=== PATIENT | female | born 1995 | race Caucasian/White ===

== ENCOUNTER → 2016-10-03 | Outpatient (CLI) | payer BC ==
[~2016-10-03] MED LIST: BCPILLS PO
--- NOTE | 2016-10-03 09:00 | DIAGNOSTIC IMAGING REPORT ---
ULTRASOUND RIGHT UPPER QUADRANT ABDOMEN CLINICAL HISTORY: Nausea and vomiting. . COMPARISON STUDY: Abdominal CT dated 10/23/2014. TECHNIQUE: Real-time, grayscale, and color flow sonography of the right upper quadrant of the abdomen was performed. Images are reviewed in the transverse and longitudinal planes. FINDINGS: Liver: The liver is normal in size and echotexture. There is no intrahepatic biliary ductal dilatation. The main portal vein is patent. Gallbladder: The gallbladder is normal in appearance. No gallstones are identified. There is no gallbladder wall thickening or pericholecystic fluid. A sonographic Osborne's sign is reportedly absent. The common bile duct measures up to 0.4 cm in diameter. Pancreas: Visualized portions of the pancreatic head and body are normal in appearance. Right kidney: Survey images of the right kidney demonstrate normal size and echotexture. There is no hydronephrosis. Ascites: None. IMPRESSION: Unremarkable sonographic evaluation of the right upper quadrant. No gallstones are identified. Electronically signed by: Yair Andrade M.D. 10/03/2016 8:59 AM Dictated Date/Time: 10/03/2016 8:58 AM
== END | disposition home or self-care (01) ==
LOC: C.ULTRBC 08:25
PROVIDERS: ATTEND Nurse Practitioner Family
DX: R11.2 Nausea with vomiting, unspecified (principal); Z33.1 Pregnant state, incidental

== ENCOUNTER → 2016-10-29 | Outpatient (CLI) | payer BC ==
--- NOTE | 2016-10-31 09:57 | EEG Procedure Note ---
EEG Procedure Note Date of Service Oct 29, 2016. Start / End Times Start Time: 2:29 PM End Time: 2:50 p.m. Referring Physician SHERLY Tapia History This is a 20-year-old female with episodes of altered consciousness and concern for seizures. EEG for Further Evaluation of Possible Seizure Etiology. Home Medication List Scheduled Control Pills ( Control Pills), 1 TAB PO DAILY Description This is a 21 electrode EEG with a single channel dedicated to limited EKG. The electrodes were placed in accordance with the International 10-20 system. At the start of the recording the patient was in an awake state. Background was well organized and composed of symmetric mixed alpha and beta frequencies. There was a symmetric well-formed moderate amplitude 9 Hz posterior dominant rhythm that was reactive to eye opening and closure. Hyperventilation was not done. Intermittent photic stimulation at various frequencies produced no abnormalities. Sleep was indicated by vertex waves and symmetric sleep spindles. Interpretation This is a normal awake and asleep routine EEG. There was no electrographic seizures or epileptiform discharges. Clinical Correlation A normal EEG does not rule out epilepsy if there is a strong clinical suspicion.
== END | disposition home or self-care (01) ==
LOC: C.NEUR 14:14
PROVIDERS: ATTEND Nurse Practitioner Family
DX: R40.4 Transient alteration of awareness (principal)

== ENCOUNTER → 2017-01-25 | Outpatient (CLI) | payer BC ==
--- NOTE | 2017-01-28 08:05 | DIAGNOSTIC IMAGING REPORT ---
BRAIN WITHOUT CONTRAST CLINICAL HISTORY: 21 years-old Female presenting with dizzy spells, near syncope, spacing out, lightheadedness, no history of trauma. TECHNIQUE: Multisequence, multiplanar MR imaging of the brain was performed without the use of intravenous contrast. IV contrast: None. COMPARISON: CT head from 10/03/2015. FINDINGS: Normal midline sagittal structures. Stephens-white matter differentiation preserved. No restricted diffusion to suggest acute ischemia. No midline shift or mass effect. No hemorrhage or extra-axial fluid collection. Bone marrow signal intensity within the calvarium normal. Normal inner ear structures. Persistence of synchondrosis between the anterior body and dens, likely normal for age. Paranasal sinuses and mastoid air cells grossly clear. Orbits normal. Upper cervical spine normal. IMPRESSION: No acute intracranial abnormality. Electronically signed by: Uriel Restrepo M.D. 01/28/2017 8:04 AM Dictated Date/Time: 01/28/2017 7:52 AM
== END | disposition home or self-care (01) ==
LOC: C.MRIBC 14:53
PROVIDERS: ATTEND Nurse Practitioner Family
DX: H53.10 Unspecified subjective visual disturbances (principal); R42 Dizziness and giddiness; R11.0 Nausea; R55 Syncope and collapse

== ENCOUNTER 2020-03-28 05:11 | Inpatient (IN) ==
--- NOTE | 2020-03-25 19:00 | History and Physical Report ---
DATE OF ADMISSION: 03/28/2020 PREOPERATIVE DIAGNOSES: 1. Intrauterine at 39 weeks. 2. History of previous section, desires repeat. HISTORY OF PRESENT ILLNESS: Melinda is a 24-year-old white female 3, para 1-0-1-1, who presents for labor and delivery this morning for a scheduled repeat section. Her first was complicated by a to deliver a 5 pound 3/4 ounce baby. This was done at [place]. It was IUGR and a failed induction. She desires repeat section and declines trial of labor. She also declines sterilization procedure at the time of her section. She notes good movement, occasional contractions, no leakage of fluid, no vaginal bleeding. The has been essentially uncomplicated. She was a transfer of care at 19 weeks. She has obesity and had a growth ultrasound at 32 weeks showing a baby in the 33rd percentile. ALLERGIES: No known drug allergies. MEDICATIONS: vitamins, iron, and Zofran as needed. PAST MEDICAL HISTORY: Significant for a cyst of the breast and an ovarian cyst and obesity. She denies heart disease, heart murmur, diabetes, kidney or liver problems. PAST SURGICAL HISTORY: Includes a , left breast biopsy, surgical procedure of the mouth and wisdom teeth removal. SOCIAL HISTORY: The patient denies tobacco and alcohol and drug use. She lives with her family and significant other. PAST OBSTETRIC AND GYNECOLOGIC HISTORY: First in 12/2016 as noted above. Second in 07/2018; this was a spontaneous miscarriage. She has regular menstrual cycles every 28-30 days and she denies history of sexually transmitted illnesses. She has no history of abnormal Pap smears. FAMILY HISTORY: Father of the baby's mother has diabetes mellitus and his father has Crohn's disease, but no other significant family history. PHYSICAL EXAMINATION: GENERAL: This is a well-developed, well-nourished, obese white female, gravid, in no acute distress. VITAL SIGNS: Blood pressure 126/80, weight 269.6 pounds. NECK: Supple without thyromegaly or lymphadenopathy. CHEST: Clear to auscultation bilaterally. CARDIOVASCULAR: Regular rate and rhythm without murmurs, gallops or rubs. ABDOMEN: Gravid, soft and nontender. EXTREMITIES: Show trace edema but are otherwise negative. PELVIC: Deferred. LABORATORY DATA: Blood type O positive, antibody negative, hepatitis B negative, hepatitis B surface antigen negative, HIV negative, RPR negative, rubella nonimmune. Pap smear in 01/2018 is normal. Panorama was low risk. Chlamydia and gonorrhea cultures were negative. A 28-week glucose was 183 with a normal 2-hour glucose. GBS was negative. ASSESSMENT AND PLAN: Melinda is a 24-year-old white female 3, para 1-0-1-1 who presents at 39 and 0/7 weeks for elective repeat section. She declines trial of labor and sterilization. The risks of the procedure were discussed with the patient including the risks of anesthesia, bleeding requiring transfusion, infection, poor wound healing, damage to surrounding structures including bowel, bladder, vessels, nerves and ureters with need for further surgery, hospitalization or intervention. Discussed the risk of any surgery including heart attack, blood clot, stroke or . Consent was reviewed and signed. Surgery is planned for Saturday, 03/28.
[2020-03-28] MEDS ORDERED: LACTATED RINGER'S 1,000 ML IV SCH ×3 (05:15→09:51)
[2020-03-28 05:46] LABS: Basophils # (auto) 0.01 K/uL (0-0.2); Basophils % (auto) 0.1 %; Eosinophils # (auto) 0.13 K/uL (0-0.5); Eosinophils % (auto) 1.8 %; Hematocrit (blood only) 34.5 % (37-47); Hemoglobin 11.2 g/dL (12.0-16.0); Immature Granulocytes # (auto) 0.03 K/uL (0.00-0.02); Immature Granulocytes % (auto) 0.4 %; Lymphocytes # (auto) 2.27 K/uL (1.2-3.4); Mean Corpuscular Hemoglobin 26.7 pg (25-34); Mean Corpuscular Volume 82.3 fL (80-100); Mean Platelet Volume 10.7 fL (7.4-10.4); Monocytes % (auto) 7.1 %; Neutrophils # (auto) 4.15 K/uL (1.4-6.5); Neutrophils % (auto) 58.6 %; Platelet Count 274 K/uL (130-400); RDW Coefficient of Variation 15.7 % (11.5-14.5); RDW Standard Deviation 46.2 fL (36.4-46.3); Red Blood Count 4.19 M/uL (4.2-5.4); White Blood Count 7.09 K/uL (4.8-10.8)
[2020-03-28 05:52] LABS: Mean Corpuscular Hgb Conc 32.5 g/dL (32-36)
[2020-03-28] MEDS ORDERED: CEFAZOLIN 3,000 MG in DEXTROSE 5% 50 ML IV SCH (06:00)
[2020-03-28] MEDS ORDERED: CITRIC ACID/SODIUM CITRATE 15 ML UDC PO SCH (06:00)
[2020-03-28 06:32] LABS: Appearance Urine Cloudy (Clear); Bacteria Urine Automated 2+ (Negative); Bilirubin Urine Negative (Negative); Blood Urine Negative (Negative); Color Urine Yellow; Epithelial Cell Urine Auto >30 /lpf (0-5); Glucose Urine UA Negative (Negative); Ketones Urine 3+ (Negative); Leukocyte Esterase Urine 2+ (Negative); Nitrite Urine Negative (Negative); Protein Urine Trace (Negative); Specific Gravity Urine 1.016 (1.000-1.030); Urobilinogen Urine Negative (Negative); pH Urine 5.5 (4.5-7.5)
[2020-03-28 06:49] LABS: Renal Epithelial Cells Urine 0-5 /lpf (0-5)
--- NOTE | 2020-03-28 07:10 | Anesthesiology Consultation ---
Date of Service March 28, 2020 Assessment & Plan (1) Encounter for pre-operative examination: Chart Review Chart Review: Acceptable Risk for Surgery and Patient NOT seen in Pre Admission Testing Consults Requested none ASA ASA3 Proposed Anesthesia Anesthesia Type: Spinal Risk / Benefits Reviewed With: PT / POA / Parent / Guardian, Accepts Plan and Informed Consent Obtained History Surgery Operation Date: 03/28/20 07:30 Proposed Procedures p Section - Alida Crawford MD, FACOG Height/Weight Height: 5 ft 3 in Weight: 122.016 kg Allergies Allergy/AdvReac Type Severity Reaction Status Date / Time No Known Allergies Allergy Verified 03/25/20 10:21 Medications Home Medications Medication Instructions Recorded Confirmed Last Taken PNV 153-FA 400 mcg-om3 35 mg-dha 1 tab PO HS 11/10/19 03/28/20 03/27/20 21:00 25 mg-epa 5 mg-fish oil chew tablet ferrous sulfate 325 mg PO HS 03/22/20 03/28/20 03/27/20 09:00 ondansetron 4 mg PO Q6H PRN #12 tab 03/23/20 03/25/20 Unknown NPO Date Last Intake of Fluids: 03/27/20 Time Last Intake of Fluids: 19:30 Date Last Intake of Solids: 03/27/20 Time Last Intake of Solids: 19:30 Past Medical History Medical History (Updated 03/28/20 @ 07:19 by Arianna Mcgowan MD) Cyst of breast Hypoglycemia Nausea and vomiting after administration of anesthetic agent Obesity Ovarian cyst Exercise / Class Metabolic Activity II 4-5 Yardwork/Stairs/Walk up hill Past Family History Family History Other No family history of adverse response to anesthesia Past Surgical History Surgical History H/O section History of left breast biopsy benign History of surgical procedure on mouth removed piece of tooth stuck in gum [place] teeth removed Past Anesthesia History No Hx of Anesthesia Complications History of PONV No Hx of PONV Social History Smoking Status: Never smoker Do You Dip or Chew Tobacco: No Hx Alcohol Use: No Alcohol type: other alcohol intake frequency: other Alcohol Intake Frequency Comment: prior to drank 1 strawberry daquiri maybe once a month Hx Substance Use: No substance use type: does not use Review of Systems Negative for chest pain or shortness of breath. Patient denies active symptoms of GERD. Patient denies history of abnormal bleeding or bleeding disorder. Patient denies active use of anticoagulants other than low dose aspirin. Patient denies numbness, tingling or weakness in lower extremities. Physical Exam Vital Signs Last Vital Signs Temp 36.5 C 03/28/20 07:01 Pulse 73 03/28/20 07:03 Resp 18 03/28/20 07:01 BP 92/54 L 03/28/20 07:03 Constitutional + morbidly obese ENMT Mouth: no TMJ abnormality and oral opening not small Thyromental Distance: > or= 3.5 Finger Breadths Mallampati Class: II Mouth / Teeth: 1. chipped Neck normal visual inspection; neck extension not limited Respiratory normal respiratory effort Auscultation: lungs clear to auscultation bilaterally Cardiovascular Rate/Rhythm: regular rate and regular rhythm Heart Sounds: no murmur Neurologic moves all extremities Motor/Sensory: no sensory deficit Psychiatric Orientation: alert and oriented x 3 Testing Laboratory Results 03/28/20 05:34 Urine Color Yellow 03/28/20 05:16 Urine Appearance Cloudy (Clear) A 03/28/20 05:16 Urine pH 5.5 (4.5-7.5) 03/28/20 05:16 Ur Specific Thor 1.016 (1.000-1.030) 03/28/20 05:16 Urine Protein Trace (Negative) H 03/28/20 05:16 Urine Glucose (UA) Negative (Negative) 03/28/20 05:16 Urine Ketones 3+ (Negative) H 03/28/20 05:16 Urine Nitrite Negative (Negative) 03/28/20 05:16 Ur Leukocyte Esterase 2+ (Negative) H 03/28/20 05:16 Urine WBC (Auto) 10-30 /hpf (0-5) H 03/28/20 05:16 Urine RBC (Auto) 5-10 /hpf (0-4) H 03/28/20 05:16 U Hyaline Cast (Auto) 10-30 /lpf (0-5) H 03/28/20 05:16 U Epithel Cells (Auto) >30 /lpf (0-5) H 09/14/20 05:16 Urine Bacteria (Auto) 2+ (Negative) H 03/28/20 05:16 Blood Type O Positive 03/28/20 05:34 Antibody Screen NEGATIVE 03/28/20 05:34
[2020-03-28] MEDS ORDERED: fentaNYL citrate 100 MCG/2 ML VIAL ONE (07:21)
[2020-03-28] MEDS ORDERED: ePHEDrine sulfate 50 MG/ML AMP ONE (07:21)
[2020-03-28] MEDS ORDERED: MoRPHine SULFATE PF 1 MG/ML 10 ML AMP/VIAL ONE (07:22)
[2020-03-28] MEDS ORDERED: OXYTOCIN 10 UNITS/ML VIAL ONE (07:48)
[2020-03-28] MEDS ORDERED: ONDANSETRON INJ 2 MG/ML 2 ML VIAL ONE (07:48)
[2020-03-28] MEDS ORDERED: ONDANSETRON INJ 2 MG/ML 2 ML VIAL IV PRN (08:10)
[2020-03-28] MEDS ORDERED: MoRPHine SULFATE PF 1 MG/ML 10 ML AMP/VIAL INT SPINAL ONE (08:10)
[2020-03-28] MEDS ORDERED: NALOXONE HCL 0.4 MG/1 ML VIAL/CARP IV PRN (08:10)
[2020-03-28] MEDS ORDERED: NALOXONE HCL 1 MG in SODIUM CHLORIDE 0.9% 1000ML 1,000 ML IV PRN (08:10)
[2020-03-28] MEDS ORDERED: PROMETHAZINE HCL 25 MG in SODIUM CHLORIDE 0.9% 50 ML IV PRN (08:10)
[2020-03-28] MEDS ORDERED: DiphenhydrAMINE HCL 50 MG/ML VIAL IV PRN (08:10)
[2020-03-28] MEDS ORDERED: ePHEDrine sulfate 50 MG/ML AMP IV PRN (08:10)
[2020-03-28] MEDS ORDERED: NALOXONE HCL 0.08 MG in SYRINGE 1.8 ML IV PRN (08:10)
[2020-03-28] MEDS ORDERED: LACTATED RINGER'S 500 ML IV PRN (08:10)
[2020-03-28] MEDS ORDERED: ACETAMINOPHEN 1000 MG/100 ML IV IV PRN (08:10)
[2020-03-28] MEDS ORDERED: HYDROmorphone INJ 0.5 MG/0.5 ML SYR IV PRN (08:10)
[2020-03-28] MEDS ORDERED: KETOROLAC 30 MG/ML VIAL IV PRN (08:10)
[2020-03-28] MEDS ORDERED: SODIUM CHLORIDE 0.9% 1000ML 1,000 ML IV SCH (08:15)
[2020-03-28] MEDS ORDERED: DC INTRASPINAL MORPHINE SCH (08:15)
[2020-03-28] MEDS ORDERED: NO NARCOTICS OR SEDATIVES SCH (08:15)
[2020-03-28] MEDS ORDERED: KETOROLAC 30 MG/ML VIAL ONE (08:20)
[2020-03-28] MEDS ORDERED: PHENYLEPHRINE 100MCG/ML 5ML SYR ONE (08:21)
--- NOTE | 2020-03-28 09:43 | Operative Report ---
PG Post Operative Report Pre & Post Diagnosis Operation Date: 03/28/20 07:30 Pre-Op Diagnosis: at 39 weeks. Previous section. Desire repeat section. Post-Op Diagnosis: Same as above. Delivery of live female child at 0800. I identified the patient and participated in the time-out.: Yes Procedure Operation Date: 03/28/20 07:30 Actual Procedures p REpeat lower transverse Section(Bilateral) - Alida Crawford MD, FACOG Surgeon Alida Crawford MD, FACOG First Officer And [employer] Instructor DR. Dulce Alcocer Estimated Blood Loss 500 Findings Consistent with Post-Op Diagnosis Viable female infant in cephalic presentation, Apgars Fluids 800cc Specimens none Drains brumfield Anesthesia Type Spinal Complications none Disposition Accompanied Patient To Recovery: Yes Disposition: L&D Indications with at 39 weeks who presents for elective repeat c/s. De clines kolby and tubal Description of Procedure The patient was taken to the operating room where she was identified verbally and by bracelet. She was seated on the operating table where a spinal anesthetic was placed by anesthesia. she was then placed in the supine position with a leftward tilt. A Brumfield catheter was placed sterilely. the patient was prepped and draped in a normal standard fashion. the anesthetic was tested and found to be adequate. A time-out was held, identifying correct patient, procedure, positioning and preoperative antibiotics. There were no concerns. A Pfannenstiel skin incision was made with a knife and taken down to the underlying layer of fascia with the knife and Bovie electocautery. Bleeding was attended to with Bovie cautery. The fascia was incised in the midline with the knife and taken out laterally with scissors. the superior edge of the fascial incision was grasped, elevated and the underlying layer of rectus muscle was taken off bluntly and with scissors. In a similar fashion, the inferior edge of the fascial incision was grasped, elevated and the underlying layer of rectus muscle was taken off bluntly and with scissors. The muscles were bluntly in the midline. The peritoneum was entered bluntly. The incision was then stretched. The bladder blade was placed. The vesicouterine peritoneum was identified, entered with scissors and taken out laterally with scissors. The bladder flap was created digitally A hysterotomy incision was scored with a knife and the incision was stretched cephalad and caudad with the electrical logging operator's fingers. The operators hand was placed into the incision and the head was delivered atraumtically. No nuchal cord. The nose and mouth were bulb suctioned. the rest of the infant was then delivered without difficulty. The nose and mouth were again bulb suctioned. the cored was clamped and cut and the infant was then handed off to the awaiting salesman/owner for drying and attention. Cord blood and segment were obtained. The placenta was manually extracted. the uterus was exteriorized and cleared of all clot and debris with moistened laparotomy sponges. The hysterotomy incision was repaired in two layers, the first in a running locked layer, the second in an imbricating layer. Hemostasis was noted to be good. Posterior cul-de-sac was irrigated and cleared of all clot and debris. The hysterotomy incision was again inspected and found to be hemostatic. the uterus was reinteriorized. Hysterotomy incision was again inspected and found to be hemostatic. Rectus muscles were reapproximated with several interrupted stitches of 0 Vicryl. The fascia was then reapproximated with 0 Vicryl starting at the edges and meeting in the midline. The subcuticular tissues were copiously irrigated and bleeding was attended to with cautery. The subcuticular tissue was reapproximated with 2-0 Plain gut. The skin was then closed with 4-0 Vicryl in a subcuticular fashion. All sponge, lap and needle counts were correct x 2. the patient was taken to the recovery room in stable condition. I attest to the content of the Intraoperative Record and any orders documented therein. Any exceptions are noted below. OB Procedure charges OB Charges 52114 C/S
[2020-03-28] MEDS ORDERED: MAGNESIUM HYDROXIDE SUSP 30 ML UDC PO PRN (09:51)
[2020-03-28] MEDS ORDERED: SENNA 8.6 MG TAB PO PRN (09:51)
[2020-03-28] MEDS ORDERED: HYDROCORTISONE ACETATE 25 MG SUPP PR PRN (09:51)
[2020-03-28] MEDS ORDERED: SUPERCREAM 0.870% 15 GM JAR EXT PRN (09:51)
[2020-03-28] MEDS ORDERED: DIPHTHERIA/TETANUS/PERTUSSIS 0.5 ML SYR/VIAL IM ONE (09:51)
[2020-03-28] MEDS ORDERED: BENZOCAINE 20% AER SPR 82.5 GM CAN EXT PRN (09:51)
[2020-03-28] MEDS: OXYTOCIN 20 UNITS in LACTATED RINGER'S 1,000 ML IV SCH ×3 (10:08→22:09)
--- NOTE | 2020-03-28 11:36 | Anesthesiology Progress Note ---
Date of Service March 28, 2020 Anesthesia Post Procedure Vital Signs Vital Signs: Temp Pulse Resp BP Pulse Ox 03/28/20 10:33 77 16 93/54 L 98 03/28/20 10:32 69 98 03/28/20 10:27 70 97 03/28/20 10:23 72 98/57 L 03/28/20 10:22 78 99 03/28/20 10:17 75 98 03/28/20 10:13 86 102/58 L 03/28/20 10:12 73 98 03/28/20 10:07 69 99 03/28/20 10:03 36.5 C 73 16 93/52 L 97 03/28/20 10:02 74 98 03/28/20 09:57 67 98 03/28/20 09:53 70 99/48 L 03/28/20 09:52 74 98 03/28/20 09:47 73 98 03/28/20 09:43 72 111/53 L 03/28/20 09:42 76 100 03/28/20 09:37 71 99 03/28/20 09:33 36.5 C 67 18 87/42 L 100 03/28/20 09:32 69 100 03/28/20 09:27 71 100 03/28/20 09:23 62 16 93/50 L 100 03/28/20 09:22 68 100 03/28/20 09:17 69 100 03/28/20 09:14 67 92/50 L 03/28/20 09:13 65 18 92/50 L 100 03/28/20 09:12 77 100 03/28/20 09:07 70 100 03/28/20 09:03 67 20 93/50 L 100 03/28/20 09:02 72 100 03/28/20 08:57 71 100 03/28/20 08:53 74 18 94/50 L 100 03/28/20 08:52 75 100 03/28/20 08:47 76 91 03/28/20 08:43 92 H 18 102/53 L 100 03/28/20 08:42 91 H 100 03/28/20 08:37 78 100 03/28/20 08:33 36.7 C 84 18 109/54 L 100 03/28/20 08:32 74 100 03/28/20 07:19 80 100/58 L 03/28/20 07:03 73 92/54 L 03/28/20 07:01 36.5 C 73 18 92/54 L 03/28/20 05:54 75 112/70 03/28/20 05:27 36.5 C 18 Transfer of Care Handoff Completed per policy Notes Mental Status: alert / awake / arousable and participated in evaluation Nausea / Vomiting: adequately controlled Pain: adequately controlled Airway Patency, RR, SpO2: stable & adequate BP & HR: stable & adequate Hydration State: stable & adequate Neuraxial Anesthesia: was administered and sensory block is resolving Anesthetic Complications: no major complications apparent and Pt Satisfied with anesthetic care
[2020-03-28] MEDS: SIMETHICONE 80 MG CHEW PO SCH ×3 (12:49→21:33)
[2020-03-28] MEDS ORDERED: LACTATED RINGER'S 1,000 ML IV ONE (13:08)
[2020-03-28] MEDS: DOCUSATE SODIUM 100 MG CAP PO SCH (21:33)
[2020-03-29] MEDS ORDERED: ONDANSETRON INJ 2 MG/ML 2 ML VIAL IV PRN (02:11)
[2020-03-29] MEDS ORDERED: DiphenhydrAMINE HCL 50 MG/ML VIAL IV PRN (02:11)
[2020-03-29] MEDS ORDERED: PROMETHAZINE HCL 25 MG in SODIUM CHLORIDE 0.9% 50 ML IV PRN (02:11)
[2020-03-29] MEDS ORDERED: KETOROLAC 30 MG/ML VIAL IV PRN (02:11)
[2020-03-29] MEDS ORDERED: MEPERIDINE HCL 50 MG/ML CARP IV PRN (02:11)
[2020-03-29 05:31] LABS: Basophils # (auto) 0.01 K/uL (0-0.2); Basophils % (auto) 0.2 %; Eosinophils # (auto) 0.12 K/uL (0-0.5); Hematocrit (blood only) 28.3 % (37-47); Hemoglobin 9.1 g/dL (12.0-16.0); Immature Granulocytes # (auto) 0.02 K/uL (0.00-0.02); Immature Granulocytes % (auto) 0.3 %; Lymphocytes # (auto) 1.43 K/uL (1.2-3.4); Lymphocytes % (auto) 23.6 %; Mean Corpuscular Hemoglobin 26.2 pg (25-34); Mean Corpuscular Hgb Conc 32.2 g/dL (32-36); Mean Corpuscular Volume 81.6 fL (80-100); Mean Platelet Volume 10.2 fL (7.4-10.4); Monocytes # (auto) 0.53 K/uL (0.11-0.59); Monocytes % (auto) 8.8 %; Neutrophils # (auto) 3.94 K/uL (1.4-6.5); Neutrophils % (auto) 65.1 %; Platelet Count 215 K/uL (130-400); RDW Coefficient of Variation 15.4 % (11.5-14.5); RDW Standard Deviation 45.1 fL (36.4-46.3); Red Blood Count 3.47 M/uL (4.2-5.4); White Blood Count 6.05 K/uL (4.8-10.8)
[2020-03-29] MEDS: OXYCODONE/ACETAMINOPHEN 5mg/325mg TAB PO PRN ×3 (06:06→19:47)
--- NOTE | 2020-03-29 06:41 | Medical Student Progress Note ---
Date of Service March 29, 2020 Assessment & Plan Admission and Anticipated Discharge Date Admission Date: March 28, 2020 Patient is a 24 year old female doing well 1 day post at 39.1 weeks feeling well with pain well controlled and incision site dressing is dry, and clean. Blood type O Positive Rubella IgG negative on 09/18/19 GBS- Continue ambulating, progress diet as tolerated, administer MMR vaccine due to negative IgG titers. Continue to monitor incision site and lochia. Monitor lightheadedness upon standing. Order belly band per patient's request. Subjective Post-c/s progress note Melinda Martinez is a 24 y/o female who is POD #1 following delivery at 39.1 weeks to a 3.25lbs girl. She reports feeling well overall this morning. No abdominal cramping & 5/10 pain well managed on analgesics. Voiding well. On clear liquids, tolerating them well and able to ambulate some. Is passing gas and no bowel movement. Has not noticed any bleeding or lochia. Currently bottle feeding. Review of Systems Denies fever, chills. Denies shortness of breath, difficulty breathing, chest pain, palpitations, chest pressure. Denies dysuria. Denies headache. Denies leg pain or swelling. Some lightheadedness when first standing up but no dizziness. Physical Exam Constitutional: well developed, well nourished and + obese; no acute distress Respiratory: normal respiratory effort, lungs clear to auscultation Cardiovascular: RRR, no murmur, no edema Heart Sounds: normal S1 and normal S2 Extremities: no calf tenderness no redness or swelling of calves Gastrointestinal (Abdomen): Inspection/Auscultation: normal bowel sounds surgical incision dressing is clean, dry. No warmth, erythema, discharge, around dressing. Genitourinary: Uterus is firm, nontender. 4cm below umbilicus per Dr. Hola Sotomayor Results & Data ([facility]) Vital Signs (Past 12 Hours) Vital Signs Temp Pulse Pulse Resp BP Pulse Ox 03/29/20 05:30 36.6 C 75 18 92/61 L 97 03/29/20 02:50 36.6 C 83 20 100/64 95 03/29/20 02:00 18 94 03/29/20 01:30 16 94 03/29/20 00:00 18 96 03/28/20 23:45 36.4 C L 84 18 104/71 96 03/28/20 20:25 16 94 03/28/20 19:25 16 98 03/28/20 19:15 36.6 C 84 16 106/73 98 Hgb: 9.44 down from 11.2 pre-c/s Hct: 28.3L down from 34.5 pre-c/s Tmax: 37C
--- NOTE | 2020-03-29 06:42 | Obstetrical Progress Note ---
Date of Service <Hola Sotomayor MD - Last Filed: 03/29/20 06:50> March 29, 2020 Assessment & Plan <Hola Sotomayor MD - Last Filed: 03/29/20 06:50> (1) : Melinda Martinez is a 24yo who presented to L&D for elective repeat section at 39wga, POD#1. -doing well, ambulating, passing gas -BP soft at 92/61; c/w LR @ 125mL/hr IV q8h -pain controlled -c/w ibuprofen 700mg PO q4h prn -c/w oxycodone/acetaminophen 1-2 tab PO q4h prn -c/w zofran 4mg IV q4h prn -c/w bowel regimen -O+, Rh neg, rubella nonimmune, GBS neg -routine care -f/u in [address] Crawford Weeks of gestation: 38 weeks Qualified Code(s): Z3A.38 - 38 weeks gestation of Subjective <Hola Sotomayor MD - Last Filed: 03/29/20 06:50> Ambulation: limited ambulation Voiding: no voiding problems Passing Gas:: Yes Diet Tolerance:: clear liquids Lochia:: Small Feeding Type:: bottle feeding Current Pain Level(1-10): 5 Feeling well, some lightheadedness when getting out of bed to use the restroom but this resolves quickly upon standing slowly Constitutional: no fever and no chills Respiratory: no cough and no dyspnea Cardiovascular: no chest pain, no palpitations and no edema Gastrointestinal: no nausea and no vomiting Genitourinary (female): no dysuria Physical Exam <Hola Sotomayor MD - Last Filed: 03/29/20 06:50> Constitutional no acute distress Respiratory normal respiratory effort, lungs clear to auscultation Cardiovascular RRR, no murmur, no edema Gastrointestinal (Abdomen) Inspection/Auscultation: normal bowel sounds Percussion/Palpation: abdomen soft Incision C/D/I Genitourinary Uterine fundus firm and palpable 4cm below umbilicus Results & Data ([facility]) <Hola Sotomayor MD - Last Filed: 03/29/20 06:50> Vital Signs (Past 12 Hours) Vital Signs Temp Pulse Pulse Resp BP Pulse Ox 03/29/20 05:30 36.6 C 75 18 92/61 L 97 03/29/20 02:50 36.6 C 83 20 100/64 95 03/29/20 02:00 18 94 03/29/20 01:30 16 94 03/29/20 00:00 18 96 03/28/20 23:45 36.4 C L 84 18 104/71 96 03/28/20 20:25 16 94 03/28/20 19:25 16 98 03/28/20 19:15 36.6 C 84 16 106/73 98 <Alida Crawford MD, FACOG - Last Filed: 03/29/20 08:27> Co-Signing Physician Notes Resident Physician Supervision Note: I interviewed and examined the patient. Discussed with Dr. Sotomayor and agree with findings and plan as documented in the note. Any exceptions or clarifications are listed here: Doing well PPD 1. Encourage ambulation, voids without brumfield, adat, po pain meds. BP on the low side , but is tolerating this well. hgb 11.2-->9.1. Documented By: Alida Crawford MD, FACOG Resident Activity Tracking <Hola Sotomayor MD - Last Filed: 03/29/20 06:50> Resident Involvement: Resident Care Provided Care Provided: OB Delivery
--- NOTE | 2020-03-29 07:41 | Anesthesiology Progress Note ---
Date of Service March 29, 2020 Anesthesia Post Procedure Vital Signs Vital Signs: Temp Pulse Pulse Pulse Resp BP BP 03/29/20 05:30 36.6 C 75 18 92/61 L 03/29/20 02:50 36.6 C 83 20 100/64 03/29/20 02:00 18 03/29/20 01:30 16 03/29/20 00:00 18 03/28/20 23:45 36.4 C L 84 18 104/71 03/28/20 20:25 16 03/28/20 19:25 16 03/28/20 19:15 36.6 C 84 16 106/73 03/28/20 18:25 18 03/28/20 17:25 16 03/28/20 16:25 18 03/28/20 15:25 36.6 C 80 16 95/60 L 03/28/20 14:26 16 03/28/20 13:40 16 03/28/20 12:45 73 16 94/60 L 03/28/20 12:40 16 03/28/20 12:20 36.4 C L 68 16 88/60 L 03/28/20 11:40 16 03/28/20 10:40 36.6 C 69 16 99/63 L 03/28/20 10:33 77 16 93/54 L 03/28/20 10:32 69 03/28/20 10:27 70 03/28/20 10:23 72 98/57 L 03/28/20 10:22 78 03/28/20 10:17 75 03/28/20 10:13 86 102/58 L 03/28/20 10:12 73 03/28/20 10:07 69 03/28/20 10:03 36.5 C 73 16 93/52 L 03/28/20 10:02 74 03/28/20 09:57 67 03/28/20 09:53 70 99/48 L 03/28/20 09:52 74 03/28/20 09:47 73 03/28/20 09:43 72 111/53 L 03/28/20 09:42 76 03/28/20 09:37 71 03/28/20 09:33 36.5 C 67 18 87/42 L 03/28/20 09:32 69 03/28/20 09:27 71 03/28/20 09:23 62 16 93/50 L 03/28/20 09:22 68 03/28/20 09:17 69 03/28/20 09:14 67 92/50 L 03/28/20 09:13 65 18 92/50 L 03/28/20 09:12 77 03/28/20 09:07 70 03/28/20 09:03 67 20 93/50 L 03/28/20 09:02 72 03/28/20 08:57 71 03/28/20 08:53 74 18 94/50 L 03/28/20 08:52 75 03/28/20 08:47 76 03/28/20 08:43 92 H 18 102/53 L 03/28/20 08:42 91 H 03/28/20 08:37 78 03/28/20 08:33 36.7 C 84 18 109/54 L 03/28/20 08:32 74 Pulse Ox 03/29/20 05:30 97 03/29/20 02:50 95 03/29/20 02:00 94 03/29/20 01:30 94 03/29/20 00:00 96 03/28/20 23:45 96 03/28/20 20:25 94 03/28/20 19:25 98 03/28/20 19:15 98 03/28/20 18:25 99 03/28/20 17:25 96 03/28/20 16:25 97 03/28/20 15:25 99 03/28/20 14:26 100 03/28/20 13:40 100 03/28/20 12:45 100 03/28/20 12:40 100 03/28/20 12:20 98 03/28/20 11:40 98 03/28/20 10:40 99 03/28/20 10:33 98 03/28/20 10:32 98 03/28/20 10:27 97 03/28/20 10:23 03/28/20 10:22 99 03/28/20 10:17 98 03/28/20 10:13 03/28/20 10:12 98 03/28/20 10:07 99 03/28/20 10:03 97 03/28/20 10:02 98 03/28/20 09:57 98 03/28/20 09:53 03/28/20 09:52 98 03/28/20 09:47 98 03/28/20 09:43 03/28/20 09:42 100 03/28/20 09:37 99 03/28/20 09:33 100 03/28/20 09:32 100 03/28/20 09:27 100 03/28/20 09:23 100 03/28/20 09:22 100 03/28/20 09:17 100 03/28/20 09:14 03/28/20 09:13 100 03/28/20 09:12 100 03/28/20 09:07 100 03/28/20 09:03 100 03/28/20 09:02 100 03/28/20 08:57 100 03/28/20 08:53 100 03/28/20 08:52 100 03/28/20 08:47 91 03/28/20 08:43 03/28/20 08:42 100 03/28/20 08:37 100 03/28/20 08:33 100 03/28/20 08:32 100 Transfer of Care Handoff Completed per policy Notes Mental Status: alert / awake / arousable and participated in evaluation Patient Amnestic to Procedure: Yes Nausea / Vomiting: adequately controlled Pain: adequately controlled Airway Patency, RR, SpO2: stable & adequate BP & HR: stable & adequate Hydration State: stable & adequate Anesthetic Complications: no major complications apparent and Pt Satisfied with anesthetic care
[2020-03-29] MEDS: IBUPROFEN 600 MG TAB PO PRN ×3 (08:25→19:47)
[2020-03-29] MEDS: SIMETHICONE 80 MG CHEW PO SCH ×4 (08:25→20:50)
[2020-03-29] MEDS: PRENATAL VITAMIN 1 TAB PO SCH (08:25)
[2020-03-29] MEDS: FERROUS SULFATE 325 MG TAB PO SCH (08:25)
[2020-03-29] MEDS: DOCUSATE SODIUM 100 MG CAP PO SCH ×2 (08:25→20:50)
[2020-03-29] MEDS ORDERED: bisacodyL 5 MG TABEC PO SCH (20:00)
[2020-03-30 06:15] LABS: Hematocrit (blood only) 29.5 % (37-47); Hemoglobin 9.4 g/dL (12.0-16.0)
[2020-03-30] MEDS: IBUPROFEN 600 MG TAB PO PRN ×2 (06:45→13:01)
[2020-03-30] MEDS: OXYCODONE/ACETAMINOPHEN 5mg/325mg TAB PO PRN ×2 (06:45→13:01)
--- NOTE | 2020-03-30 08:05 | Obstetrical Progress Note ---
Date of Service March 30, 2020 Assessment & Plan (1) Encounter for care and examination after delivery: satisfactory /post-op recovery wishes to go home if baby discharged scripts sent to pharmacy listd Day #:: 2 Subjective Ambulation: ambulating normally Passing Gas:: Yes Diet Tolerance:: regular diet Lochia:: Small Feeding Type:: breast feeding pain well controlled with oral pain meds Review of Systems All systems reviewed & are unremarkable except as noted in HPI & below Physical Exam Constitutional WD/WN, vitals as above Gastrointestinal (Abdomen) Inspection/Auscultation: + abdominal surgical incision (intact and dry- no erythema or induration) Psychiatric A+Ox3, euthymic affect Results & Data ([facility]) Vital Signs (Past 12 Hours) Vital Signs Temp Pulse Resp BP Pulse Ox 03/29/20 22:32 98.1 F 72 20 107/68 97
[2020-03-30] MEDS: SIMETHICONE 80 MG CHEW PO SCH ×2 (09:13→13:00)
[2020-03-30] MEDS: FERROUS SULFATE 325 MG TAB PO SCH (09:13)
[2020-03-30] MEDS: DOCUSATE SODIUM 100 MG CAP PO SCH (09:13)
[2020-03-30] MEDS: PRENATAL VITAMIN 1 TAB PO SCH (09:13)
[2020-03-30] MEDS ORDERED: bisacodyL 10 MG SUPP PR PRN (09:30)
--- NOTE | 2020-04-01 14:45 | Discharge Summary (DS) ---
ADMIT DIAGNOSES: 1. Intrauterine at 39+ weeks. 2. History of previous section, desires repeat. DISCHARGE DIAGNOSES: Same. PROCEDURES: Repeat lower transverse section. HISTORY OF PRESENT ILLNESS: Brigitte is a 24-year-old white female 3, para 1-0-1-1 who presents to labor and delivery for scheduled repeat section. Her first was complicated by to deliver a 5 pound 3/4 ounce baby. This was done at [place] that was for IUGR and failed induction. She desires repeat and declines trial of labor. Additionally, she also declines sterilization procedure. For the rest of patient's detailed history and physical, please see her history and physical. ASSESSMENT: This is a 24-year-old white female 3, para 1-0-1-1 at 39 weeks who desires repeat section. HOSPITAL COURSE: The patient was admitted and underwent a repeat lower transverse section without difficulty. Estimated blood loss was 500 mL. Findings at the time of surgery revealed normal uterus, tubes, and ovaries bilaterally and she delivered a viable baby in cephalic presentation. Her postoperative course was uncomplicated. She tolerated a regular diet, ambulated, voided after the removal of her Cohen catheter and tolerated a regular diet. Her discharge H&H was 9.4 and 29.5. She was discharged home on postoperative day #2 feeling well to return in 6 weeks for postoperative check.
== END 2020-03-30 13:40 | disposition home or self-care (01) | DRG 788 ==
LOC: 4S1 05:11 → EDSTATUS 07:30 → 4S2 10:40

== ENCOUNTER 2022-09-17 05:32 | Inpatient (IN) ==
--- NOTE | 2022-08-24 08:23 | PAT Medication Instructions ---
Medication Instructions Date of Service August 24, 2022 Home Medications Medication Instructions Recorded norethindrone 1.5 mg-ethinyl 1 tab PO DAILY #28 tabs 09/05/21 estradiol 30 mcg(21)/iron 75 mg(7) tablet ( FE ()) norethindrone 1.5 mg-ethinyl estradiol 30 mcg(21)/iron 75 mg(7) tablet ( FE ()) 1 tab PO DAILY 1 cap PO HS Continue as directed norethindrone 1.5 mg-ethinyl estradiol 30 mcg(21)/iron 75 mg(7) tablet ( FE ()) 1 tab PO DAILY Take evening before surgery 1 cap PO HS Other Notes If you have any questions please call us at [phone] or [phone] or [phone] or [phone]
--- NOTE | 2022-08-28 15:41 | Anesthesiology Consultation ---
Date of Service August 28, 2022 Assessment & Plan (1) Encounter for pre-operative examination: - COVID screening: Per assessment on 08/28: No known COVID-19 positive contacts or current COVID-19 related symptoms. Travel screen negative. Patient vaccinated. At surgeon discretion if preop Covid testing being done. - S/P Repeat (03/28/20): SAB at L3 (x1 attempt) at [facility]. No issues noted per post-op anesthesia progress note. Chart Review Chart Review: Acceptable Risk for Surgery and Patient seen in Pre Admission Testing Teaching & Discussion Pre-Anesthesia Teaching/Discussion Notes: Instructed NPO after midnight before surgery,except medications with 15 cc of water. Medication instructions provided according to the PAT guidelines. History Surgery Operation Date: 09/17/22 07:30 Proposed Procedures p Repeat Section - Roderick Emanuel MD Height/Weight Height: 5 ft 3 in Weight: 117.9 kg Allergies Allergy/AdvReac Type Severity Reaction Status Date / Time No Known Allergies Allergy Verified 08/23/22 15:21 Medications Home Medications Medication Instructions Recorded Confirmed Last Taken 1 cap PO HS 08/23/22 08/23/22 Unknown Past Medical History Medical History Migraines Exercise / Class Metabolic Activity III < 4 Walking/Shop/Light housework (one FS (no CP, + SOB)) Past Family History Family History Other No family history of adverse response to anesthesia Past Surgical History Surgical History H/O section 2019 Repeat (03/28/20): SAB at L3 (x1 attempt) at [facility]. No issues noted per post-op anesthesia progress note. History of left breast biopsy benign History of surgical procedure on mouth removed piece of tooth stuck in gum Nausea and vomiting after administration of anesthetic agent [place] teeth removed Past Anesthesia History No Hx of Anesthesia Complications (except PONV) and No Family Hx of Anesthesia Complications History of PONV History of PONV and Hx of Motion Sickness Social History Smoking Status: Never smoker Do You Dip or Chew Tobacco: No Hx Alcohol Use: No Hx Substance Use: No substance use type: does not use Review of Systems Stable [place]. Patient denies chest pain, shortness of breath, fever, chills, cough, wheezing, palpitations. Physical Exam Vital Signs VITALS BP 99/67 P 89 TEMP 98.2 SP02 97%RA RESP 16 PHYSICAL Full cervical extension range of motion. Full TMJ range of motion. TMD 3 finger breaths Mallampati Score 1 Dentition: intact Lungs: clear throughout to auscultation Cardiac: regular rate and rhythm, no murmurs noted Spine: normal Extremities: no edema Lab Results Anesthesia Preop Results Results Anesthesia Widget: WBC 9.62 K/ul (4.8-10.8) 08/28/22 Hgb 8.8 g/dl (12.0-16.0) L 08/28/22 Hct 27.8 % (37.0-47.0) L 08/28/22 Plt 271 K/uL (130-400) 08/28/22 Na 135 mmol/L (136-145) L 08/28/22 K 4.1 mmol/L (3.5-5.1) 08/28/22 Cl 105 mmol/L (98-107) 08/28/22 CO2 24 mmol/L (21-32) 08/28/22 BUN 6 mg/dl (6-23) 08/28/22 Creat 0.44 mg/dl (0.6-1.2) L 08/28/22 Glucose Level 81 mg/dl (70-99(Fasting)) 08/28/22 PT 10.6 Seconds (9.0-12.0) 08/28/22 PTT 25.4 Seconds (21.0-31.0) 08/28/22 INR 1.0 (0.9-1.1) 08/28/22 Blood Type O Positive 08/28/22 Antibody Screen NEGATIVE 08/28/22 COVID-19 Risk Screen Screening Information COVID-19 Screen Date: 08/28/22 Exposure 21 Days Family/Household +COVID Last 21 Days: No Exposure 10 Days Any COVID Exposure Last 10 Days: No Symptoms Last 10 Days Experienced COVID Sx Last 10 Days: No + COVID 0-90 Days COVID + in Last 0-90 Days: No
--- NOTE | 2022-09-11 16:52 | History and Physical Report ---
CHIEF COMPLAINT: Intrauterine at 39 weeks' gestation. Two previous sections. HISTORY OF PRESENT ILLNESS: The patient is a 26-year-old 4, para 2. She has had 1 spontaneo us AB. General health is good. was dated with a first trimester ultrasound done at about 8 weeks 2 days, gave her due date of 09/23/2022. First was done in 2016. She had a low am niotic fluid. She was in induction at 38 weeks. She went in to distress and she ended up deli vering a 5-pound 1 ounce female. Second 2019, repeat section at 39 weeks' gestation, she d elivered a live female, 7 pounds 9 ounces. She had an uneventful course and well dated with a first trimester ultrasound and she is scheduled for repeat section. PAST MEDICAL HISTORY: She has two children in good health. No history of rheumatic fever, heart dis ease, heart murmur, diabetes, tuberculosis. ALLERGIES: No known drug allergies. PAST SURGICAL HISTORY: She has had a wisdom teeth removed and then another type of dental procedure and two sections. SOCIAL HISTORY: No smoking, no alcohol intake. Works at [employer]. FAMILY HISTORY: Mom is 49, in good health. Father is 45, history is unknown. No brothers or sister s. REVIEW OF SYSTEMS: HEAD: No symptoms of frequent or severe headaches. EYES: No symptoms of blurred vision or double vision. EARS: No symptoms of frequent ear infection or difficulty hearing. NOSE: No symptoms of frequent nosebleeds or difficulty breathing through her nose. THROAT: No symptoms of frequent or severe sore throat or difficulty swallowing. PHYSICAL EXAMINATION: GENERAL: Well-developed, well-nourished 26-year-old white female, alert, oriented times 3, cooperati ve, in no acute distress, appeared her stated age. EYES: Conjunctivae pink. Sclerae white, no evidence of jaundice. ENT: Ears had normal light reflex bilaterally. Nose had normal mucosa. Septum is midline. There w ere no polyps. THROAT: No erythema or evidence of infection. Teeth are in good state of repair. HEAD: Normocephalic, normal distribution of hair. NECK: Supple. Trachea midline. Thyroid is not enlarged. There is no adenopathy appreciated. Both carotids are of good intensity. CHEST: Clear to auscultation and percussion. No wheezes, rales or rhonchi appreciated. HEART: Had regular rhythm. S1 and S2 are normal. BREASTS: Normal. ABDOMEN: Soft, nontender. Term-sized fetus. There was a well-healed Pfannenstiel scar. Moderately large pannus. PELVIC: Revealed a vertex presentation, floating. Cervix was posterior, closed. MUSCULOSKELETAL: Revealed no calf tenderness. IMPRESSION OF THIS CASE: Status post 2 previous sections, status post removal of wisdom derrick . Intrauterine at 39 weeks' gestation for repeat section. Job ID: [id number]
[2022-09-17] MEDS ORDERED: SODIUM CHLORIDE 0.9% 250 ML IV PRN (05:37)
[2022-09-17] MEDS ORDERED: LACTATED RINGER'S 1,000 ML IV SCH (06:00)
[2022-09-17] MEDS ORDERED: cefOXitin 2,000 MG in DEXTROSE 5% 50 ML IV SCH (06:00)
[2022-09-17] MEDS ORDERED: CITRIC ACID/SODIUM CITRATE 15 ML UDC PO SCH (06:00)
[2022-09-17 06:17] LABS: Hemoglobin 9.3 g/dl (12.0-16.0); Mean Corpuscular Hemoglobin 25.1 pg (25.0-34.0); Mean Corpuscular Volume 80.9 fL (80.0-100.0); Platelet Count 284 K/uL (130-400); RDW Coefficient of Variation 15.9 % (11.5-14.5); RDW Standard Deviation 45.9 fL (36.4-46.3); Red Blood Count 3.71 M/uL (4.20-5.40); White Blood Count 9.44 K/ul (4.8-10.8)
[2022-09-17 06:18] LABS: Basophils # (auto) 0.03 K/uL (0-0.2); Basophils % (auto) 0.3 %; Eosinophils # (auto) 0.13 K/uL (0-0.50); Eosinophils % (auto) 1.4 %; Immature Granulocytes % (auto) 1.1 %; Lymphocytes # (auto) 2.86 K/uL (1.2-3.4); Lymphocytes % (auto) 30.3 %; Mean Platelet Volume 10.1 fL (9.4-12.4); Monocytes # (auto) 0.46 K/uL (0.11-0.59); Monocytes % (auto) 4.9 %; Neutrophils # (auto) 5.86 K/uL (1.40-6.50)
[2022-09-17 06:34] LABS: Anion Gap 7 (3-11); BUN Creatinine Ratio 14.6 (10-20); Blood Urea Nitrogen 7 mg/dl (6-23); Calcium 9.7 mg/dl (8.5-10.1); Carbon Dioxide 21 mmol/L (21-32); Chloride 108 mmol/L (98-107); Creatinine Clr Calc Pharmacy 219.9 ml/min; Est GFR (African American) > 150.0 ml/min; Est GFR (Non-African American) 135.4 ml/min; Glucose 93 mg/dl (70-99(Fasting)); Potassium 3.8 mmol/L (3.5-5.1); Sodium 136 mmol/L (136-145)
[2022-09-17 06:40] LABS: Partial Thromboplastin Ratio 0.9; Partial Thromboplastin Time 23.9 Seconds (21.0-31.0); Prothrombin Time 10.2 Seconds (9.0-12.0)
[2022-09-17] MEDS ORDERED: fentaNYL citrate 100 MCG/2 ML VIAL ONE (06:53)
[2022-09-17] MEDS ORDERED: PHENYLEPHRINE 100MCG/ML 5ML SYR ONE (06:53)
[2022-09-17] MEDS ORDERED: MoRPHine SULFATE PF 1 MG/ML 10 ML AMP/VIAL ONE (06:53)
[2022-09-17] MEDS ORDERED: ONDANSETRON INJ 2 MG/ML 2 ML VIAL ONE (06:53)
[2022-09-17] MEDS ORDERED: OXYTOCIN 10 UNITS/ML 10ML VIAL ONE (06:53)
[2022-09-17] MEDS ORDERED: OXYTOCIN 10 UNITS/ML VIAL ONE (07:15)
--- NOTE | 2022-09-17 07:39 | History & Physical Bridge Note ---
Date of Service September 17, 2022 History & Physical Bridge Note I have examined the patient, reviewed the History & Physical and in the interval since the performance of the History & Physical I have noted the following changes of clinical significance: no changes noted
[2022-09-17] MEDS ORDERED: ONDANSETRON INJ 2 MG/ML 2 ML VIAL IV PRN (08:01)
[2022-09-17] MEDS ORDERED: NALOXONE HCL 0.08 MG in SYRINGE 1.8 ML IV PRN (08:01)
[2022-09-17] MEDS ORDERED: LACTATED RINGER'S 500 ML IV PRN (08:01)
[2022-09-17] MEDS ORDERED: NALOXONE HCL 1 MG in SODIUM CHLORIDE 0.9% 1000ML 1,000 ML IV PRN (08:01)
[2022-09-17] MEDS ORDERED: PROMETHAZINE HCL 6.25 MG in SODIUM CHLORIDE 0.9% 50 ML IV PRN (08:01)
[2022-09-17] MEDS ORDERED: MoRPHine SULFATE PF 1 MG/ML 10 ML AMP/VIAL INT SPINAL ONE (08:01)
[2022-09-17] MEDS ORDERED: diphenhydrAMINE 50 MG/ML VIAL IV PRN (08:01)
[2022-09-17] MEDS ORDERED: ePHEDrine sulfate 50 MG/ML AMP IV PRN (08:01)
[2022-09-17] MEDS ORDERED: MoRPHine SULFATE 2 MG/ML CARP IV PRN (08:01)
[2022-09-17] MEDS ORDERED: NALOXONE HCL 0.4 MG/1 ML VIAL/CARP IV PRN (08:01)
[2022-09-17] MEDS ORDERED: NO NARCOTICS OR SEDATIVES SCH (08:15)
[2022-09-17] MEDS ORDERED: DC INTRASPINAL MORPHINE SCH (08:15)
[2022-09-17] MEDS ORDERED: SODIUM CHLORIDE 0.9% 1000ML 1,000 ML IV SCH (08:15)
[2022-09-17] MEDS ORDERED: ePHEDrine sulfate 50 MG/ML AMP ONE (08:21)
[2022-09-17] MEDS ORDERED: DIPHTHERIA/TETANUS/PERTUSSIS 0.5mL SYR/VIAL (Age 7+yrs) IM ONE (08:56)
[2022-09-17] MEDS ORDERED: HYDROCORTISONE ACETATE 25 MG SUPP PR PRN (08:56)
[2022-09-17] MEDS ORDERED: bisacodyL 10 MG SUPP PR PRN (08:56)
[2022-09-17] MEDS ORDERED: oxyCODONE/ACETAMINOPHEN 5mg/325mg TAB PO PRN (08:56)
[2022-09-17] MEDS ORDERED: ACETAMINOPHEN 325 MG TAB PO PRN (08:56)
[2022-09-17] MEDS ORDERED: BENZOCAINE 20% AER SPR 82.5 GM CAN EXT PRN (08:56)
[2022-09-17] MEDS ORDERED: OXYTOCIN 30 UNITS/500 ML BAG IV PRN (08:56)
--- NOTE | 2022-09-17 09:00 | Post Operative Brief Note ---
Immediate Post Op Note v1 Date of Surgery September 17, 2022 Pre & Post Diagnosis Operation Date: 09/17/22 07:30 Pre-Op Diagnosis: 1. Intrauterine 39weeks 2. Two previous c-sections Post-Op Diagnosis: 1.Same I identified the patient and participated in the time-out.: Yes Procedure Operation Date: 09/17/22 07:30 Actual Procedures p Section in LD; Repeat lower uterine transverse section for the of a live boy at 0818(Bilateral) - Roderick Emanuel MD Surgeon Roderick Emanuel MD Collar Baster Dr Arroyo Estimated Blood Loss 400 Findings Consistent with Post-Op Diagnosis live male Drains Brumfield Catheter (brumfield catheter patent and draining clear yellow urine throughout procedure) Anesthesia Type Spinal Complications none
--- NOTE | 2022-09-17 09:09 | Anesthesiology Progress Note ---
Date of Service September 17, 2022 Anesthesia Post Procedure Vital Signs Vital Signs: Temp Pulse Resp BP Pulse Ox 09/17/22 09:05 94 H 98 09/17/22 09:06 101 H 108/53 L 09/17/22 07:23 98 H 100 09/17/22 07:18 90 100 09/17/22 07:13 88 100 09/17/22 07:05 36.6 C 89 18 128/68 09/17/22 05:47 36.8 C 20 Transfer of Care Handoff Completed per policy Notes Mental Status: alert / awake / arousable and participated in evaluation Patient Amnestic to Procedure: No Nausea / Vomiting: adequately controlled Pain: adequately controlled Airway Patency, RR, SpO2: stable & adequate BP & HR: stable & adequate Hydration State: stable & adequate Neuraxial Anesthesia: was administered and sensory block is resolving Anesthetic Complications: no major complications apparent and Pt Satisfied with anesthetic care
--- NOTE | 2022-09-17 09:29 | Operative Report (OR) ---
DATE OF PROCEDURE: 09/17/2022. PROCEDURE: Repeat low segment section. INDICATIONS FOR SURGERY: Two previous sections, intrauterine at 39 weeks gestation . PREOPERATIVE DIAGNOSIS: Intrauterine at 39 weeks' gestation. POSTOPERATIVE DIAGNOSIS: Intrauterine at 39 weeks' gestation. Delivered live male with nuchal cord x1. SURGEON: Jayy Emanuel MD. CAB WORKER: Yovani Arroyo MD. ESTIMATED BLOOD LOSS: 400 mL ANESTHESIA: Spinal. OPERATIVE FINDING AND PROCEDURE: The patient was brought to the OR table, correctly identified by nickolas schilling and conversation. Spinal anesthesia was administered, lower abdomen was painted with alcohol b ased sterilizing solution. Cohen catheter was inserted aseptically in the bladder, connected to grav ity drainage. Retraction pads were placed on the abdomen and the pannus was retracted up towards the patient's head, exposing the previous Pfannenstiel scar. After draping in the usual sterile fashion and testing for adequate anesthesia and also doing a timeout, incision was made and carried down to t he anterior fascia by sharp dissection. Hemostasis was secured by electrocauterization. Fascia was incised transversely, exposing the recti muscles, which were carefully dissected off the anterior fas jen up towards the umbilicus and down towards the pelvic brim. The recti muscles were then in the midline. Peritoneum was carefully raised and entered. Lower uterine segment was clear. The re were no adhesions to the anterior abdominal wall. A retractor was placed into the abdomen, exposi ng the lower uterine segment that was well-healed. An incision was made above the vesicouterine fold . Bladder was undermined bluntly, pushed out of the operative field. Lower uterine segment was scor ed with a knife and entered bluntly with the scissors. Clear amniotic fluid was seen at this time, i ncision was then widened laterally. A vectis retractor was applied to the head with fundal pressure, was delivered, there was a nuchal cord x1, which was reduced over the head. We allowed the c ord to pulse for one full minute, then clamped the cord and handed the infant off to the sales promotion representative . Cord blood was taken. The placenta was then removed manually. Uterus, tubes, and ovaries were br ought out through the incision. Uterine cavity was cleansed with a clean sponge. A 10 units of Albert andrés was injected right into the myometrium. Myometrium was then approximated with a heavy duty chrom ic, which approximated the myometrial layer. Then, the fascial layer was approximated over this with a horizontal suture of heavy duty Vicryl. Following this, hemostasis was excellent. The peritoneal edges were restored with a 3-0 chromic. Pelvis was cleansed of all blood clots and debris. Tubes a nd ovaries were inspected and found to be normal. The uterus, tubes, and ovaries were reinserted int o the abdominal cavity. Careful anatomical approximation of the anterior abdominal wall was performe d. Peritoneum was closed with a mattress suture of chromic catgut. Recti muscles were approximated with interrupted [id number] suture chromic catgut, fascia was closed with a running heavy duty V icryl from each angle to the middle. Subcutaneous was approximated with subcutaneous plain and the s kin edges were approximated with staple clips. Job ID: [id number]
[2022-09-17] MEDS ORDERED: OXYTOCIN 10 UNITS/ML 10ML VIAL IM ONE (09:43)
[2022-09-17] MEDS: KETOROLAC 30 MG/ML VIAL IV PRN ×2 (11:33→21:18)
[2022-09-17] MEDS: NALBUPHINE HCL INJ 10 MG/ML AMP IV PRN ×2 (13:26→21:19)
[2022-09-17] MEDS: OXYTOCIN 30 UNITS in LACTATED RINGER'S 1,000 ML IV SCH ×2 (14:17→21:44)
[2022-09-17] MEDS ORDERED: LACTATED RINGER'S 1,000 ML IV ONE (19:07)
[2022-09-17] MEDS: DOCUSATE SODIUM 100 MG CAP PO SCH (21:19)
[2022-09-18] MEDS: ACETAMINOPHEN W/CODEINE #3 1 TAB PO PRN ×5 (05:42→23:30)
[2022-09-18 06:49] LABS: Hematocrit (blood only) 24.5 % (37.0-47.0); Hemoglobin 7.8 g/dl (12.0-16.0); Mean Corpuscular Hemoglobin 24.8 pg (25.0-34.0); Mean Corpuscular Hgb Conc 31.8 g/dL (32.0-36.0); Mean Corpuscular Volume 77.8 fL (80.0-100.0); Mean Platelet Volume 10.3 fL (9.4-12.4); Platelet Count 223 K/uL (130-400); RDW Coefficient of Variation 15.8 % (11.5-14.5); RDW Standard Deviation 44.4 fL (36.4-46.3); Red Blood Count 3.15 M/uL (4.20-5.40); White Blood Count 10.73 K/ul (4.8-10.8)
--- NOTE | 2022-09-18 07:52 | Obstetrical Progress Note ---
Date of Service September 18, 2022 Assessment & Plan Admission and Anticipated Discharge Date Admission Date: September 17, 2022 Subjective abdomen soft and non tender passing flatus no calf tenderness incision is clean and dry vaginal bleeding scant hgb 7.8 Results & Data ([facility]) Vital Signs (Past 12 Hours) Vital Signs Temp Pulse Pulse Resp BP Pulse Ox O2 Del Method 09/18/22 03:52 36.6 C 86 14 93/63 L 98 Room Air 09/18/22 02:05 14 95 09/18/22 01:00 14 95 09/18/22 00:20 16 96 09/17/22 23:19 36.7 C 78 16 95/65 L 95 Room Air 09/17/22 23:19 14 95 09/17/22 22:24 16 98 09/17/22 21:00 16 97 09/17/22 20:00 16 97
[2022-09-18] MEDS: PRENATAL VITAMIN 1 TAB PO SCH (08:15)
[2022-09-18] MEDS: DOCUSATE SODIUM 100 MG CAP PO SCH ×2 (08:15→19:38)
[2022-09-18] MEDS: IBUPROFEN 600 MG TAB PO PRN ×4 (09:53→23:31)
[2022-09-18 11:51] VITALS: O2SAT 98
[2022-09-18] MEDS ORDERED: bisacodyL 5 MG TABEC PO SCH (20:00)
[2022-09-19 07:12] LABS: Hemoglobin 8.4 g/dl (12.0-16.0)
--- NOTE | 2022-09-19 07:54 | Obstetrical Progress Note ---
Date of Service September 19, 2022 Assessment & Plan Admission and Anticipated Discharge Date Admission Date: September 17, 2022 Subjective abdomen soft and non tender bandage is dry no calf tenderness ambulating well vaginal bleeding scant hgb 8.4 Results & Data ([facility]) Vital Signs (Past 12 Hours) Vital Signs Temp Pulse Resp BP 09/18/22 23:34 36.5 C 87 18 96/66 L
[2022-09-19 08:27] VITALS: BP 97/65; PULSE 69; TEMP 98.1
[2022-09-19] MEDS: PRENATAL VITAMIN 1 TAB PO SCH (09:31)
[2022-09-19] MEDS: DOCUSATE SODIUM 100 MG CAP PO SCH (09:32)
[2022-09-19] MEDS: IBUPROFEN 600 MG TAB PO PRN (09:32)
--- NOTE | 2022-09-19 13:17 | Discharge Summary (DS) ---
HOSPITAL COURSE: Mrs. Martinez was admitted for repeat low segment section at 39 weeks' gesta tion. She had 2 previous sections. She did have a low hemoglobin. The day of admission, he r hemoglobin was 9.3. She was taken to the OR, given prophylactic antibiotics. She underwent a repe at low segment section. The surgery went well. Estimated blood loss was only about 400 mL. Postoperatively, she did well. She had a NASEEM dressing inserted. Her postop hemoglobin at one poin t did fall to 7.8; however, the day of discharge, her hemoglobin was 8.4. She was not symptomatic. She was ambulating well, eating well. She had no calf tenderness. Vaginal bleeding was scant. She was discharged to be followed in home and office, given pain medicine and told to continue to take pr enatal vitamins 1 tablet daily while she is and to supplement with supplemental iron ev jordy other day and call the office if she had a temperature over 100 or any heavy bleeding. Job ID: [id number]
== END 2022-09-19 13:20 | disposition home or self-care (01) | DRG 788 ==
LOC: 4S1 05:32 → EDSTATUS 07:30 → 4E2 11:29